=== PATIENT | male | born 1985 | race Two or more races ===

== ENCOUNTER 2023-12-01 08:06 | Emergency (ER) | payer SELFPAY ==
[~2023-12-01] VITALS: Ht 172.7 cm; Wt 88.0 kg
[2023-12-01 08:10] VITALS: O2SAT 95
[2023-12-01] MEDS: KETOROLAC 60MG/2ML VIAL IM ONE (09:00)
[2023-12-01] MEDS ORDERED: TOPUD MT (10:36)
[2023-12-01] MEDS ORDERED: IBUP-2029 MT (10:36)
[2023-12-01] MEDS ORDERED: HYDR-4001 MT (10:36)
[2023-12-01 10:48] VITALS: BP 125/74; PULSE 81; RESP 19; TEMP 98.2
== END 2023-12-01 11:11 | disposition home or self-care (01) ==
LOC: ER 08:06
DX: S42.202A Unspecified fracture of upper end of left humerus, initial encounter for closed fracture (principal); J45.909 Unspecified asthma, uncomplicated; V49.49XA Driver injured in collision with other motor vehicles in traffic accident, initial encounter; Y93.89 Activity, other specified; Y92.89 Other specified places as the place of occurrence of the external cause; Y99.8 Other external cause status
CPT/HCPCS: 99284; 73030; 73630; 96372; J1885